=== PATIENT | male | born 1940 | race Caucasian/White ===

== ENCOUNTER → 2020-02-27 | Outpatient (CLI) | payer MEDICARE ==
[2020-02-27 10:38] LABS: CREATININE 0.9 mg/dL (0.6-1.3)
== END ==
LOC: M.LAB 10:10 → M.MRI 11:30
PROVIDERS: ATTEND Family Medicine
DX: S43.492A Other sprain of left shoulder joint, initial encounter (principal); M19.012 Primary osteoarthritis, left shoulder; M25.812 Other specified joint disorders, left shoulder; M71.312 Other bursal cyst, left shoulder; M25.412 Effusion, left shoulder; M62.512 Muscle wasting and atrophy, not elsewhere classified, left shoulder; X58.XXXA Exposure to other specified factors, initial encounter; Y93.89 Activity, other specified; Y92.89 Other specified places as the place of occurrence of the external cause; Y99.8 Other external cause status

== ENCOUNTER → 2020-12-06 | Outpatient (CLI) | payer MEDICARE | LOC: M.ULTRA 09:57 | PROVIDERS: ATTEND Family Medicine | DX: H93.8X2 Other specified disorders of left ear (principal) ==